=== PATIENT | female | born 1935 | race Caucasian/White ===

== ENCOUNTER 2018-09-03 12:45 | Observation (INO) | payer OTHER ==
--- NOTE | 2018-09-03 14:34 | PDOC ---
Attending Attestation - Resident Resident Name: Kamron Moody - ED Attending Attestation I have performed the following: I have examined & evaluated the patient, The case was reviewed & discussed with the resident, I agree w/resident's findings & plan, Exceptions are as noted - HPI HPI: 09/03/18 16:13 This patient is an 83 year old Georgian-speaking female with PMHx of urinary incontinence, and osteoporosis who was sent by her PCP for admission for headache. On arrival, pt reports intermittent global, gradual onset headaches but none currently. Patient reports 3 weeks of intermittent buzzing sounds in her ear. She states that it sounds like a bee in her head. She denies any ear pain and states she feels well otherwise. She denies any dizziness, lightheadedness, visual changes, chest pain, shortness of breath, focal numbness, tingling, or weakness. Denies stiff neck. She denies any recent falls. PCP: Melecio - Physicial Exam PE: 09/03/18 21:42 agree with resident exam - Medical Decision Making 09/03/18 16:02 83yo F presents to the ED for admission given 3 weeks of headache and tinnitus. Exam wnl at this time. Labs including ESR/CRP sent, all unremarkable, CTH with no acute findings. Case discussed with Dr. Ramsey and Dr. Majano, pt admitted for further workup of symptoms. Heart Score/ECG Review #1 09/03/18 22:26 My read: Sinus rhythm, rate 61. Normal axis. No SHANIKA. +biphasic T waves in V3- V5. +PAC. No previous EKGs to compare.
--- NOTE | 2018-09-03 14:51 | PDOC ---
History of Present Illness <Antoinette Cunningham - Last Filed: 09/03/18 16:18> - General History Source: Patient Exam Limitations: No Limitations - History of Present Illness Initial Comments: 09/03/18 14:51 The patient is an 83F with a PMH of urinary incontinence, indigestion, gallstones, "colon irritation", "narrow esophagus", and osteoporosis, who presents to the ER with a note from her PCP, Dr. Majano, requesting a stat head CT to r/o ICH. The patient states that she's had a buzzing sensation in her head for the past 3 weeks that is intermittent and not associated with any hearing or vision changes, numbness, tingling, or weakness, CP, SOB, nausea, vomiting, fever or chills. The patient denies any falls or head trauma. She denies LOC. She denies any headache. <Kamron Moody - Last Filed: 09/05/18 06:20> - General Chief Complaint: Headache Stated Complaint: PCP SENT/HEADACHE Time Seen by Provider: 09/03/18 13:16 Past History <Antoinette Cunningham - Last Filed: 09/03/18 16:18> - Past Medical History COPD: No HTN: Yes - Suicide/Smoking/Psychosocial Hx Smoking History: Never smoked Have you smoked in the past 12 months: No Information on smoking cessation initiated: No Hx Alcohol Use: No Drug/Substance Use Hx: No Substance Use Type: None <Kamron Moody - Last Filed: 09/05/18 06:20> - Past Medical History Allergies/Adverse Reactions: Allergies Allergy/AdvReac Type Severity Reaction Status Date / Time No Known Allergies Allergy Verified 09/03/18 12:50 Home Medications: Ambulatory Orders Apixaban [Eliquis] 1 tab PO BID 09/03/18 Dorzolamide HCl/Pf [Dorzolamide 2% Eye Drop] 1 drop OU BID 09/03/18 Metoprolol Tartrate 1 tab PO BID 09/03/18 Mirabegron [Myrbetriq] 25 mg PO DAILY 09/03/18 Review of Systems - Review of Systems Able to Perform ROS?: Yes Comments:: 09/03/18 14:59 GENERAL/CONSTITUTIONAL: No fever or chills. No weakness. HEAD, EYES, EARS, NOSE AND THROAT: No change in vision. No ear pain or discharge. No sore throat. CARDIOVASCULAR: No chest pain, palpitations, or lightheadedness. RESPIRATORY: No cough, wheezing, shortness of breath, or hemoptysis. GASTROINTESTINAL: No nausea, vomiting, diarrhea, constipation, or abdominal pain. GENITOURINARY: No dysuria, frequency, hematuria, or change in urination. MUSCULOSKELETAL: No joint or muscle swelling or pain. No neck or back pain. SKIN: No rash or lesions. NEUROLOGIC: Positive for buzzing sensation in head. No headache, numbness, tingling, focal weakness, loss of consciousness, or change in strength/ sensation. Is the patient limited Lao proficient: No <Kamron Moody - Last Filed: 09/05/18 06:20> *Physical Exam - Vital Signs Last Vital Signs Temp Pulse Resp BP Pulse Ox 98.2 F 64 14 129/66 100 09/03/18 12:50 09/03/18 12:50 09/03/18 12:50 09/03/18 12:50 09/03/18 12:50 <Antoinette Cunningham - Last Filed: 09/03/18 16:18> - Vital Signs Last Vital Signs Temp Pulse Resp BP Pulse Ox 98.2 F 64 14 129/66 100 09/03/18 12:50 09/03/18 12:50 09/03/18 12:50 09/03/18 12:50 09/03/18 12:50 - Physical Exam Comments: 09/03/18 15:00 GENERAL: Well developed, well nourished. Awake and alert. No acute distress. HEENT: Normocephalic, atraumatic. Hearing grossly normal. Moist mucous membranes. PERRLA, EOMI. No conjunctival pallor. Sclera are non-icteric. NECK: Supple. Full ROM. CARDIOVASCULAR: Regular rate and rhythm. No murmurs, rubs, or gallops. Distal pulses are 2+ and symmetric. PULMONARY: No evidence of respiratory distress. Lungs clear to auscultation bilaterally. No wheezing, rales or rhonchi. ABDOMINAL: Soft. Non-tender. Non-distended. No rebound or guarding. GENITOURINARY: No CVA tenderness bilaterally. MUSCULOSKELETAL: Normal range of motion at all joints. No bony deformities or tenderness. EXTREMITIES: No cyanosis. No clubbing. No edema. No calf tenderness or swelling. SKIN: Warm and dry. Normal capillary refill. No rashes. No jaundice. NEUROLOGICAL: Alert, awake, appropriate. Cranial nerves 2-12 intact. No deficits to light touch and temperature in face, upper extremities and lower extremities. 5/5 strength in deltoids, biceps, triceps, quadriceps, hamstrings, and gastrocnemius. Normal speech. Gait is normal without ataxia. PSYCHIATRIC: Cooperative. Good eye contact. Appropriate mood and affect. <Kamron Moody - Last Filed: 09/05/18 06:20> Heart Score/ECG Review #1 ECG reviewed & interpreted by me at: 15:01 General ECG Interpretation: Sinus Rhythm, Normal Rate, Normal Intervals, No acute ischemic changes Compared to previous ECG there are: Previous ECG unavail 09/03/18 15:01 NSR vent rate 60 MS 110 QRS 102 QTc 398 No STD or SHANIKA. PAC's noted. No priors. T wave inversions in V4-V6 <Kamron Moody Filed: 09/05/18 06:20> ED Treatment Course - LABORATORY CBC & Chemistry Diagram: 09/03/18 15:03 09/03/18 15:03 - ADDITIONAL ORDERS Additional order review: Laboratory Results 09/03/18 15:03 PT with INR 13.10 H INR 1.11 H 09/03/18 15:03 RBC 4.45 MCV 92.4 MCHC 34.1 RDW 13.2 MPV 11.0 Neutrophils % 66.5 Lymphocytes % 26.1 Monocytes % 6.0 Eosinophils % 0.6 Basophils % 0.8 - Consult/PCP Time Called: 16:15 (Called service, awaiting call back.) Case discussed with personal care physician: Ken Lynch <Antoinette Cunningham - Last Filed: 09/03/18 16:18> - LABORATORY CBC & Chemistry Diagram: 09/04/18 06:45 09/04/18 06:45 - RADIOLOGY Radiology Studies Ordered: Category Date Time Status HEAD CT WITHOUT CONTRAST [CT] Stat CT Scan 09/03/18 13:22 Ordered <Kamron Moody Last Filed: 09/05/18 06:20> Medical Decision Making - Medical Decision Making 09/03/18 15:00 The patient is an 83F with multiple medical problems who presents to the ER with complaints of ear buzzing in her head, sent by PCP for head CT. Will obtain labs and imaging and reassess the patient. EKG unremarkable. Pending labs and imaging. 09/03/18 16:21 CTH negative. CBC negative. CMP pending. I have d/w Dr. Lynch who will follow the patient on an inpatient basis. Pt stable. <Kamron Moody - Last Filed: 09/05/18 06:20> *DC/Admit/Observation/Transfer <Antoinette Cunningham - Last Filed: 09/03/18 16:18> <Kamron Moody - Last Filed: 09/05/18 06:20> Diagnosis at time of Disposition: Headache Qualifiers: Headache type: unspecified Headache chronicity pattern: unspecified pattern Intractability: not intractable Qualified Code(s): R51 - Headache - Discharge Dispostion Disposition: HOME Condition at time of disposition: Stable
[2018-09-03 15:40] LABS: BASO % 0.8 % (0-2.0); EOS % 0.6 % (0-4.5); HEMATOCRIT 41.1 % (32.4-45.2); LYMPH % 26.1 % (8-40); MCH 31.5 pg (25.7-33.7); MCHC 34.1 g/dl (32.0-36.0); MEAN CELL VOLUME 92.4 fl (80-96); NEUT % 66.5 % (42.8-82.8); PLATELET COUNT 178 K/MM3 (134-434); RBC 4.45 M/mm3 (3.60-5.2); RDW 13.2 % (11.6-15.6); WHITE BLOOD COUNT 6.1 K/mm3 (4.0-10.0)
[2018-09-03 15:55] LABS: INR 1.11 (0.83-1.09); PROTHROMBIN TIME (PATIENT) 13.1 SEC (9.7-13.0)
[2018-09-03 16:28] LABS: ALBUMIN 4.1 g/dl (3.4-5.0); ALK PHOS 133 U/L (45-117); ANION GAP 6 MMOL/L (8-16); BILIRUBIN,TOTAL 0.3 mg/dL (0.2-1); BLOOD UREA NITROGEN 17 mg/dL (7-18); CALCIUM 9.1 mg/dL (8.5-10.1); CHLORIDE 104 mmol/L (98-107); CO2 30 mmol/L (21-32); CREATININE 0.5 mg/dL (0.55-1.3); GLUCOSE,RANDOM 84 mg/dL (74-106); POTASSIUM 3.9 mmol/L (3.5-5.1); SGOT/AST 27 U/L (15-37); SGPT/ALT 20 U/L (13-61); SODIUM 140 mmol/L (136-145); TOT PROT 8.2 g/dl (6.4-8.2)
[2018-09-03 17:04] LABS: ERYTHROCYTE SEDIMENTATION RATE 10 mm/hr (0-30)
--- NOTE | 2018-09-03 17:28 | CON.NEURO ---
Consult Consult Specialty:: Cris Referred by:: Melecio - History of Present Illness History of Present Illness: 83 years old woamnw ith PMH CAD OA urinary incontinence, indigestion, gallstones, "colon irritation", "narrow esophagus", and osteoporosis presented to the emergency room with a chief complaint of difficulty with her head patient describes feeling of abnormal sensation with numbness and tingling. Patient denies any recent travel no difficulty swallowing. Patient was evaluated in the emergency room. - Alcohol/Substance Use Hx Alcohol Use: No - Smoking History Smoking history: Never smoked Have you smoked in the past 12 months: No Home Medications - Allergies Allergies/Adverse Reactions: Allergies Allergy/AdvReac Type Severity Reaction Status Date / Time No Known Allergies Allergy Verified 09/03/18 12:50 Physical Exam-Neuro Vital Signs: Vital Signs Temperature 97.9 F 09/03/18 16:53 Pulse Rate 69 09/03/18 16:53 Respiratory Rate 16 09/03/18 16:53 Blood Pressure 141/89 09/03/18 16:53 O2 Sat by Pulse Oximetry (%) 100 09/03/18 12:50 Labs: CBC, BMP 09/03/18 15:03 09/03/18 15:03 INR, PTT INR 1.11 (0.83-1.09) H 09/03/18 15:03 - Neuro Exam Eyes: Yes: PERRLA Speech: Garbled Dominant Hand: Left Cranial Nerves II-XII Intact: Yes Gag: Present DTR's: 1+ Left Bicep, 1+ Right Bicep, 1+ Left Brachioradialis, 1+ Right Brachioradialis Response to light touch: Normal Response to pain prick: Normal Response to temperature: Normal Motor Strength: 3/5: Left Arm, Right Arm, Left Leg, Right Leg Gait: Deferred Imaging - Results Cat Scan: Image Reviewed Problem List - Problems (1) Tinnitus Assessment/Plan: Non focal neuro exam Rule out Temporla areteritis 1 .ESR 2 .CRP 3. MRI jojo with no lesley Thanks Code(s): H93.19 - TINNITUS, UNSPECIFIED EAR
[2018-09-03] MEDS ORDERED: ACETAMINOPHEN 325 MG TABLET (FP) PO PRN (17:41)
[2018-09-03] MEDS ORDERED: KETOROLAC TROMETHAMINE 15 MG/ML VIAL IVPUSH ONE (17:45)
[2018-09-03] MEDS: RANITIDINE HCL 150 MG TABLET (FP) PO SCH (21:22)
[2018-09-04 07:20] LABS: HEMATOCRIT 38.6 % (32.4-45.2); HEMOGLOBIN 12.7 GM/dL (10.7-15.3); MCH 30.7 pg (25.7-33.7); MEAN PLT VOLUME 10.2 fl (7.5-11.1); PLATELET COUNT 158 K/MM3 (134-434); RBC 4.14 M/mm3 (3.60-5.2); RDW 13.4 % (11.6-15.6)
[2018-09-04 08:12] LABS: ALBUMIN 3.6 g/dl (3.4-5.0); ALK PHOS 113 U/L (45-117); ANION GAP 6 MMOL/L (8-16); BILIRUBIN,TOTAL 0.6 mg/dL (0.2-1); BLOOD UREA NITROGEN 21 mg/dL (7-18); CALCIUM 8.6 mg/dL (8.5-10.1); CHLORIDE 106 mmol/L (98-107); CO2 29 mmol/L (21-32); CREATININE 0.6 mg/dL (0.55-1.3); GLUCOSE,RANDOM 86 mg/dL (74-106); SGOT/AST 21 U/L (15-37); SGPT/ALT 18 U/L (13-61); SODIUM 141 mmol/L (136-145); TOT PROT 7.2 g/dl (6.4-8.2)
[2018-09-04] MEDS: RANITIDINE HCL 150 MG TABLET (FP) PO SCH ×2 (09:09→21:49)
--- NOTE | 2018-09-04 10:39 | HP ---
Admitting History and Physical - Primary Care Physician PCP: Elizabeth Majano - Admission Chief Complaint: sent in by pcp to get head ct r/o ICH History of Present Illness: This patient is an 83 year old Citizen Of [place]-speaking female with PMHx of urinary incontinence, and osteoporosis who was sent by her PCP for admission for headache. On arrival, pt reports intermittent global, gradual onset headaches but none currently. Patient reports 3 weeks of intermittent buzzing sounds in her ear. She states that it sounds like a bee in her head. She denies any ear pain and states she feels well otherwise. She denies any dizziness, lightheadedness, visual changes, chest pain, shortness of breath, focal numbness, tingling, or weakness. Denies stiff neck. She denies any recent falls. History Source: Medical Record Limitations to Obtaining History: Language Barrier - Smoking History Smoking history: Never smoked Have you smoked in the past 12 months: No - Alcohol/Substance Use Hx Alcohol Use: No Home Medications - Allergies Allergies/Adverse Reactions: Allergies Allergy/AdvReac Type Severity Reaction Status Date / Time No Known Allergies Allergy Verified 09/03/18 12:50 - Home Medications Home Medications: Ambulatory Orders Apixaban [Eliquis] 1 tab PO BID 09/03/18 Dorzolamide HCl/Pf [Dorzolamide 2% Eye Drop] 1 drop OU BID 09/03/18 Metoprolol Tartrate 1 tab PO BID 09/03/18 Mirabegron [Myrbetriq] 25 mg PO DAILY 09/03/18 Review of Systems - Review of Systems Neurological: reports: Headache Physical Examination Vital Signs: Vital Signs Temperature 98.1 F 09/04/18 09:11 Pulse Rate 64 09/04/18 09:11 Respiratory Rate 18 09/04/18 09:11 Blood Pressure 130/64 09/04/18 09:11 O2 Sat by Pulse Oximetry (%) 98 09/04/18 00:50 Constitutional: Yes: Calm Cardiovascular: Yes: Regular Rate and Rhythm, S1, S2 Respiratory: Yes: CTA Bilaterally Gastrointestinal: Yes: Normal Bowel Sounds, Soft Edema: No Neurological: Yes: Alert, Oriented Labs: CBC, BMP 09/04/18 06:45 09/04/18 06:45 Imaging - Results Cat Scan: Report Reviewed Problem List - Problems (1) Headache Assessment/Plan: seen by neurology to get MRI w/o contrast- r/o /mass esr and crp normal ENT consult ct scan no bleed cardioogy consult unclar why she is on eliquis Code(s): R51 - HEADACHE (2) Tinnitus Assessment/Plan: ENT eval MRI Code(s): H93.19 - TINNITUS, UNSPECIFIED EAR
--- NOTE | 2018-09-04 11:50 | EKG ---
Test Reason : Blood Pressure : / mmHG Vent. Rate : 061 BPM Atrial Rate : 061 BPM P-R Int : 110 ms QRS Dur : 102 ms QT Int : 396 ms P-R-T Axes : 025 020 026 degrees QTc Int : 398 ms SINUS RHYTHM WITH SHORT AL WITH PREMATURE ATRIAL COMPLEXES T WAVE ABNORMALITY, CONSIDER LATERAL ISCHEMIA ABNORMAL ECG NO PREVIOUS ECGS AVAILABLE Confirmed by SOHAN OSEGUERA MD ([id number]) on 09/04/2018 11:50:47 AM Referred By: Confirmed By:SOHAN OSEGUERA MD
[2018-09-04] MEDS ORDERED: METOPROLOL TARTRATE 50 MG TABLET (FP) PO ONE (12:45)
--- NOTE | 2018-09-04 13:36 | ECHO ---
Name: LEI ULLOA Exam:Adult Echocardiogram Study Date: 09/04/2018 09:17 AM Age: 83 yrs Reason For Study: DIZZINESS Height: 57 in Weight: 148 lb BSA: 1.6 m2 MMode/2D Measurements & Calculations IVSd: 0.99 cm Ao root diam: 3.0 cm LVIDd: 4.5 cm LA dimension: 2.9 cm LVIDs: 3.0 cm LVPWd: 1.0 cm LVPWs: 1.3 cm EDV(Teich): 90.4 ml ESV(Teich): 34.2 ml LVOT diam: 2.0 cm Doppler Measurements & Calculations MV E max david: 63.2 cm/sec Ao V2 max: 201.6 cm/sec MV A max david: 97.7 cm/sec Ao max P.0 mmHg MV E/A: 0.65 AI P1/2t: 639.3 msec MV dec time: 0.12 sec NAN(V,D): 1.7 cm2 AI max david: 436.3 cm/sec LV V1 max P.7 mmHg AI max P.2 mmHg LV V1 max: 108.1 cm/sec AI dec slope: 199.9 cm/sec2 TR max david: 250.8 cm/sec PA V2 max: 92.3 cm/sec TR max P.2 mmHg PA max P.4 mmHg RVSP(TR): 35.2 mmHg Med Peak E' David: 5.3 cm/sec RAP systole: 10.0 mmHg Med E/e': 12.0 Lat Peak E' David: 6.7 cm/sec Lat E/e': 9.4 Procedure A complete two-dimensional transthoracic echocardiogram was performed (2D, M-mode, Doppler and color flow Doppler). Left Ventricle The left ventricular size, thickness and function are normal. The left ventricular ejection fraction is normal. Ejection Fraction = 60-65%. The left ventricular wall motion is normal. Right Ventricle The right ventricle is normal in size and function. Atria Normal left and right atrial size and function. Mitral Valve There is no mitral regurgitation noted. Tricuspid Valve There is trace tricuspid regurgitation. Right ventricular systolic pressure is normal. Aortic Valve No hemodynamically significant valvular aortic stenosis. Mild aortic regurgitation. Pulmonic Valve There is no pulmonic valvular regurgitation. Great Vessels The aortic root is normal size. Pericardium/Pleura There is no pericardial effusion. Interpretation Summary The left ventricular size, thickness and function are normal The right ventricle is normal in size and function. There is trace tricuspid regurgitation. Mild aortic regurgitation. MD Celestino Rondon 09/04/2018 01:36 PM
--- NOTE | 2018-09-04 14:31 | CON.CARD ---
Consult Consult Specialty:: Cardiology Referred by:: Elizabeth Majano Reason for Consultation:: ?why on apixaban - History of Present Illness Chief Complaint: Headache History of Present Illness: 83 year old female with a pmhx of osteoporosis, htn, urinary incontinence, and paroxysmal afib on apixaban sent by her PMD for headache and for a head CT. Patient reports intermittent gradual onset headaches but asymptomatic at this time. Patient reports 3 weeks of intermittent buzzing sounds in her ear. She denies any dizziness, lightheadedness, visual changes, chest pain, shortness of breath. She denies any recent falls. - History Source History Provided By: Patient, Family Member, Medical Record - Past Medical History Cardio/Vascular: Yes: AFIB - Alcohol/Substance Use Hx Alcohol Use: No - Smoking History Smoking history: Never smoked Have you smoked in the past 12 months: No Home Medications - Allergies Allergies/Adverse Reactions: Allergies Allergy/AdvReac Type Severity Reaction Status Date / Time No Known Allergies Allergy Verified 09/03/18 12:50 - Home Medications Home Medications: Ambulatory Orders Apixaban [Eliquis] 1 tab PO BID 09/03/18 Dorzolamide HCl/Pf [Dorzolamide 2% Eye Drop] 1 drop OU BID 09/03/18 Metoprolol Tartrate 1 tab PO BID 09/03/18 Mirabegron [Myrbetriq] 25 mg PO DAILY 09/03/18 Vital Signs: Vital Signs Temperature 98.1 F 09/04/18 09:11 Pulse Rate 64 09/04/18 09:11 Respiratory Rate 18 09/04/18 09:11 Blood Pressure 130/64 09/04/18 09:11 O2 Sat by Pulse Oximetry (%) 98 09/04/18 00:50 Constitutional: Yes: No Distress Neck: Yes: Supple Respiratory: Yes: CTA Bilaterally Gastrointestinal: Yes: Soft Cardiovascular: Yes: Regular Rate and Rhythm JVD: No Carotid Bruit: No PMI: Non-Displaced Heart Sounds: Yes: S1, S2 Murmur: No: Systolic Murmur Edema: No - Other Data Labs, Other Data: CBC, BMP 09/04/18 06:45 09/04/18 06:45 INR, PTT INR 1.11 (0.83-1.09) H 09/03/18 15:03 Imaging - Results EKG: Image Reviewed Assessment/Plan 83 year old female with a pmhx of osteoporosis, htn, urinary incontinence, and paroxysmal afib on apixaban sent by her PMD for headache and for a head CT. Patient reports intermittent gradual onset headaches but asymptomatic at this time. Patient reports 3 weeks of intermittent buzzing sounds in her ear. She denies any dizziness, lightheadedness, visual changes, chest pain, shortness of breath. She denies any recent falls. EKG: sinus rhythm, pac, lateral T wave abnormalities Carotid Doppler no high grade stenosis. 1) Afib -Two echocardiogram within last month with normal LVEF and no significant valve disease. -Reviewed chart and patient is on apixaban because on August 05, 2018 the patient went for an exercise stress test and was noted to develop paroxysmal afib during exercise. Patient was started on metoprolol and apixaban that day it appears like in the chart.
[2018-09-04] MEDS ORDERED: PT OWN MED DRAWER 7, Y5N ONE (21:58)
--- NOTE | 2018-09-05 09:58 | DS ---
Physical Examination Vital Signs: Vital Signs Temperature 98.1 F 09/05/18 02:00 Pulse Rate 56 L 09/05/18 06:00 Respiratory Rate 18 09/05/18 06:00 Blood Pressure 133/56 L 09/05/18 06:00 O2 Sat by Pulse Oximetry (%) 100 09/05/18 01:00 Cardiovascular: Yes: Regular Rate and Rhythm Respiratory: Yes: Regular, CTA Bilaterally Gastrointestinal: Yes: Normal Bowel Sounds, Soft Edema: No Neurological: Yes: Alert, Oriented Labs: CBC, BMP 09/04/18 06:45 09/04/18 06:45 Discharge Summary Reason For Visit: TINNITUS Current Active Problems Headache (Acute) Tinnitus (Acute) Hospital Course: The patient is an 83F with a PMH of urinary incontinence, indigestion, gallstones, "colon irritation", "narrow esophagus", and osteoporosis, who presents to the ER with a note from her PCP, Dr. Majano, requesting a stat head CT to r/o ICH. The patient states that she's had a buzzing sensation in her head for the past 3 weeks that is intermittent and not associated with any hearing or vision changes, numbness, tingling, or weakness, CP, SOB, nausea, vomiting, fever or chills. The patient denies any falls or head trauma. She denies LOC. She denies any headache. - Problems (1) Headache Assessment/Plan: seen by neurology to get MRI w/o contrast- r/o /mass esr and crp normal ENT consult ct scan no bleed cardioogy consult unclar why she is on eliquis Code(s): R51 - HEADACHE (2) Tinnitus Assessment/Plan: ENT eval MRI Pending Code(s): H93.19 - TINNITUS, UNSPECIFIED EAR (3) AFib Assessment/Plan: cardio -Two echocardiogram within last month with normal LVEF and no significant valve disease. -Reviewed chart and patient is on apixaban because on August 05, 2018 the patient went for an exercise stress test and was noted to develop paroxysmal afib during exercise. Patient was started on metoprolol and apixaban that day it appears like in the chart. If mri negative then dc home and further w/u as outpatient Condition: Stable - Instructions Referrals: Elizabeth Majano MD [Primary Care Provider] - Disposition: HOME - Home Medications Comprehensive Discharge Medication List: Ambulatory Orders Apixaban [Eliquis] 1 tab PO BID 09/03/18 Dorzolamide HCl/Pf [Dorzolamide 2% Eye Drop] 1 drop OU BID 09/03/18 Mirabegron [Myrbetriq] 25 mg PO DAILY 09/03/18 Metoprolol Tartrate [Lopressor -] 25 mg PO DAILY tablet 09/05/18 Ranitidine [Zantac -] 150 mg PO BID #30 tablet 09/05/18
[2018-09-05] MEDS ORDERED: METOPROLOL TARTRATE 25 MG TABLET (FP) PO SCH (10:00)
[2018-09-05 10:03] VITALS: BMI 19.4
[2018-09-05] MEDS: RANITIDINE HCL 150 MG TABLET (FP) PO SCH ×2 (10:21→21:41)
[2018-09-05] MEDS: APIXABAN 2.5 MG TABLET PO SCH ×2 (10:21→21:41)
[2018-09-05] MEDS ORDERED: PT OWN MED DRAWER 7, Y5N ONE (10:34)
[2018-09-05] MEDS: DORZOLAMIDE 2% HCL OPHTHALMIC SOLUTION 10 ML BOTTLE OU SCH (21:41)
[2018-09-06] MEDS ORDERED: PT OWN MED DRAWER 7, Y5N ONE (09:02)
[2018-09-06 09:41] VITALS: BP 120/57; PULSE 66; TEMP 97.4
[2018-09-06] MEDS: APIXABAN 2.5 MG TABLET PO SCH (09:42)
[2018-09-06] MEDS: DORZOLAMIDE 2% HCL OPHTHALMIC SOLUTION 10 ML BOTTLE OU SCH (09:42)
[2018-09-06] MEDS: RANITIDINE HCL 150 MG TABLET (FP) PO SCH (09:42)
== END 2018-09-06 14:00 | disposition home or self-care (01) ==
LOC: JER 12:45 → UNDOADMOB 15:35 → JERBED 15:35 → INTOOBSV 15:35 → JERBED 17:30 → J5S 17:30
PROVIDERS: ADMIT Family Medicine; ATTEND Family Medicine
DX: R51 Headache (principal); I48.0 Paroxysmal atrial fibrillation
CPT/HCPCS: 36415; 70450-TC; 70551-TC; 80053; 83036; 85025; 85027; 85610; 85651; 86140; 86850; 86900; 86901; 93005; 93010; 93306-TC; 93880-TC; 97116-GP; 97161-GP; 99282-25; G0378